=== PATIENT | female | born 1995 | race Caucasian/White ===

== ENCOUNTER 2017-06-15 20:52 | Inpatient (IN) | payer OTHER, MEDICAID ==
[~2017-06-15] VITALS: Ht 157.5 cm; Wt 67.2 kg
[~2017-06-15 20:52] MED LIST: BCP
[2017-06-15] MEDS ORDERED: OXYTOCIN 30U/ 0.9% NaCL 500ML 500 ML IV ONE (22:11)
[2017-06-15] MEDS ORDERED: D5%-LACTATED RINGERS 1,000 ML IV SCH (22:11)
[2017-06-15] MEDS ORDERED: OXYTOCIN 30U/ 0.9% NaCL 500ML 500 ML ONE (22:16)
[2017-06-15] MEDS ORDERED: NEWBORN KIT ONE (22:16)
[2017-06-15] MEDS ORDERED: LIDOCAINE 1%, 10ML ONE (22:16)
[2017-06-15] MEDS ORDERED: MISOPROSTOL 200 MCG TABLET ONE (22:16)
[2017-06-15] MEDS ORDERED: ONDANSETRON 2MG/ML, 2ML ONE (22:17)
[2017-06-15] MEDS ORDERED: FENTANYL PF 100 MCG/2ML ONE (22:17)
[2017-06-15] MEDS: LACTATED RINGERS 1,000 ML IV SCH ×2 (22:27→23:13)
[2017-06-15] MEDS ORDERED: METOCLOPRAMIDE 5 MG/ML, 2ML IVPush PRN (22:30)
[2017-06-15] MEDS ORDERED: FENTANYL PF 100 MCG/2ML IV PRN (22:30)
[2017-06-15] MEDS ORDERED: ONDANSETRON 2MG/ML, 2ML IVPush PRN (22:30)
[2017-06-15] MEDS ORDERED: FENTANYL PF 100 MCG/2ML IVPush PRN (22:30)
[2017-06-15] MEDS ORDERED: SODIUM CITRATE/CITRIC ACID 30 ML UDC PO PRN (22:30)
[2017-06-15 22:44] LABS: MEAN CORPUSCULAR HEMOGLOBIN 30.6 pg (27.0-34.8); MEAN CORPUSCULAR HGB CONC 33.3 g/dL (32.4-35.8); MEAN CORPUSCULAR VOLUME 91.7 fL (80-100); MEAN PLATELET VOLUME 9.9 fL (7.4-10.4); PLATELET COUNT 218 x10^3/uL (130-400); RED BLOOD COUNT 3.69 x10^6/uL (3.82-5.3); RED CELL DISTRIBUTION WIDTH 14.8 % (9.6-15.2)
[2017-06-15 23:03] LABS: BASOPHILS # (AUTO) 0.13 x10^3/uL (0-0.1); BASOPHILS % (AUTO) 1 % (0-1); EOSINOPHILS # (AUTO) 0.02 x10^3/uL (0-0.4); EOSINOPHILS % (AUTO) 0 % (1-7); LYMPHOCYTES # (AUTO) 2.72 x10^3/uL (1-3.4); LYMPHOCYTES % (AUTO) 18 % (22-44); MD SCAN; MONOCYTES # (AUTO) 0.52 x10^3/uL (0.2-0.8); MONOCYTES % (AUTO) 3 % (2-9); NEUTROPHILS # (AUTO) 11.96 x10^3/uL (1.8-6.8); NEUTROPHILS % (AUTO) 78 % (42-75)
[2017-06-15] MEDS ORDERED: LACTATED RINGERS 1,000 ML IV SCH (23:23)
[2017-06-15] MEDS ORDERED: FENTANYL/BUPIV./NS/PF 250 ML EPIDCONT SCH (23:23)
[2017-06-15] MEDS ORDERED: FENTANYL/BUPIV./NS/PF 250 ML EPIDCONT ONE (23:26)
[2017-06-15] MEDS ORDERED: BUPIVACAINE/PF 0.25% ONE ×2 (23:26)
[2017-06-15] MEDS ORDERED: NALOXONE 0.4 MG/ML, 1ML IVPush PRN (23:30)
[2017-06-15] MEDS ORDERED: LACTATED RINGERS 1,000 ML IVBOLUS PRN (23:30)
[2017-06-15] MEDS ORDERED: EPHEDRINE 50 MG/ML, 1ML IVPush PRN (23:30)
[2017-06-16] MEDS: OXYTOCIN 30U/ 0.9% NaCL 500ML 500 ML IV SCH ×2 (05:38→15:38)
[2017-06-16] MEDS ORDERED: DIPH,PERTUSS(ACELL),TET VAC/PF NC IM-VACC PRN (06:00)
[2017-06-16] MEDS ORDERED: MAGNESIUM HYDROXIDE 8%, 30ML UDC PO PRN (06:00)
[2017-06-16] MEDS ORDERED: MISOPROSTOL 200 MCG TABLET PR PRN (06:00)
[2017-06-16] MEDS ORDERED: CALCIUM CARBONATE 500 MG TAB.CHEW PO PRN (06:00)
[2017-06-16] MEDS ORDERED: ACETAMINOPHEN 325 MG TABLET PO PRN ×2 (06:00)
[2017-06-16] MEDS ORDERED: OXYcodone/APAP 5/325MG TABLET PO PRN ×2 (06:00)
[2017-06-16] MEDS ORDERED: RHOGAM FROM BLOOD BANK 1 NOTE EA IM/IV ONE (06:00)
[2017-06-16] MEDS ORDERED: ONDANSETRON 2MG/ML, 2ML IV PRN (06:00)
[2017-06-16 07:50] VITALS: BP 128/78
[2017-06-16] MEDS: IBUPROFEN 600 MG TABLET PO PRN ×2 (10:25→22:53)
[2017-06-16] MEDS: PRENATAL VIT/IRON/FA 1 EACH TABLET PO SCH (10:25)
[2017-06-16] MEDS: DOCUSATE 100 MG CAPSULE PO PRN ×2 (10:26→22:53)
[2017-06-16 12:00] VITALS: BP 127/78
[2017-06-16 13:16] LABS: MEAN CORPUSCULAR HEMOGLOBIN 30.5 pg (27.0-34.8); MEAN CORPUSCULAR HGB CONC 33.3 g/dL (32.4-35.8); MEAN CORPUSCULAR VOLUME 91.5 fL (80-100); MEAN PLATELET VOLUME 9.8 fL (7.4-10.4); PLATELET COUNT 185 x10^3/uL (130-400); RED BLOOD COUNT 3.67 x10^6/uL (3.82-5.3)
[2017-06-16 13:52] LABS: BASOPHILS # (AUTO) 0.03 x10^3/uL (0-0.1); BASOPHILS % (AUTO) 0 % (0-1); EOSINOPHILS # (AUTO) 0.05 x10^3/uL (0-0.4); EOSINOPHILS % (AUTO) 0 % (1-7); LYMPHOCYTES # (AUTO) 2.64 x10^3/uL (1-3.4); LYMPHOCYTES % (AUTO) 14 % (22-44); MD SCAN; MONOCYTES # (AUTO) 0.65 x10^3/uL (0.2-0.8); MONOCYTES % (AUTO) 4 % (2-9); NEUTROPHILS # (AUTO) 15.07 x10^3/uL (1.8-6.8); NEUTROPHILS % (AUTO) 82 % (42-75)
[2017-06-16 16:00] VITALS: BP 109/65
[2017-06-16 19:50] VITALS: BP 116/75
[2017-06-16] MEDS ORDERED: ONDANSETRON ODT 4 MG ONE (23:52)
[2017-06-17] VITALS: BP 107/64
[2017-06-17] MEDS ORDERED: ONDANSETRON ODT 4 MG PO PRN
[2017-06-17] MEDS ORDERED: ONDANSETRON 0.8 MG/ML ORAL SOL PO PRN
[2017-06-17] MEDS: OXYTOCIN 30U/ 0.9% NaCL 500ML 500 ML IV SCH (01:38)
[2017-06-17 07:34] VITALS: BP 109/60
[2017-06-17] MEDS: DOCUSATE 100 MG CAPSULE PO PRN (07:36)
[2017-06-17] MEDS: PRENATAL VIT/IRON/FA 1 EACH TABLET PO SCH (07:36)
== END 2017-06-17 13:20 | disposition home or self-care (01) | DRG 775 ==
LOC: LDOP 20:52 → EDIP 22:27 → LDIP 22:41 → 2NW 06-16 07:40
PROVIDERS: ADMIT Obstetrics & Gynecology Maternal & Fetal Medicine; ATTEND Obstetrics & Gynecology Maternal & Fetal Medicine
PROC: 10E0XZZ Delivery of Products of Conception, External Approach (ICD-10-PCS; principal; 2017-06-16)
PROC: 0HQ9XZZ Repair Perineum Skin, External Approach (ICD-10-PCS; 2017-06-16)
PROC: 3E0R3BZ Introduction of Anesthetic Agent into Spinal Canal, Percutaneous Approach (ICD-10-PCS; 2017-06-16)
PROC: 00HU33Z Insertion of Infusion Device into Spinal Canal, Percutaneous Approach (ICD-10-PCS; 2017-06-16)
DX: O34.219 Maternal care for unspecified type scar from previous cesarean delivery (principal); O69.81X0 Labor and delivery complicated by cord around neck, without compression, not applicable or unspecified; O77.9 Labor and delivery complicated by fetal stress, unspecified; O70.0 First degree perineal laceration during delivery; Z37.0 Single live birth; Z3A.40 40 weeks gestation of pregnancy
CPT/HCPCS: 36415; 82803; 85025; 86850; 86900; J2405; J3010; Q0162; J7120

== ENCOUNTER 2020-03-19 15:31 | Emergency (ER) | payer MEDICAID, OTHER ==
[~2020-03-19] VITALS: Ht 157.5 cm; Wt 70.0 kg
--- NOTE | 2020-03-19 15:32 | NUR ---
patient arrives with cramping and pain left sided flank pain and some pain in right. she is guarding her belly and in excrutiating pain she rates 8 of 10. on monitor, collected urine, and rails up
[2020-03-19] MEDS ORDERED: KETOROLAC 30 MG/1 ML IVPush ONE (16:00)
[2020-03-19] MEDS ORDERED: SODIUM CHLORIDE 0.9% 1,000ML IV ONE (16:00)
[2020-03-19] MEDS ORDERED: SODIUM CHLORIDE FLUSH 10ML SYR IVF ONE (16:00)
[2020-03-19] MEDS ORDERED: KETOROLAC 30 MG/1 ML ONE (16:00)
[2020-03-19] MEDS ORDERED: ONDANSETRON 2MG/ML, 2ML IVPush ONE (16:00)
[2020-03-19] MEDS ORDERED: ONDANSETRON 2MG/ML, 2ML ONE (16:00)
[2020-03-19 16:17] LABS: MICROSCOPIC NOT IND
[2020-03-19 16:18] LABS: BASOPHILS % (AUTO) 1 % (0-1); EOSINOPHILS % (AUTO) 1 % (1-7); LYMPHOCYTES % (AUTO) 27 % (22-44); MEAN CORPUSCULAR HEMOGLOBIN 31.2 pg (27.0-34.8); MEAN PLATELET VOLUME 9.5 fL (7.4-10.4); MONOCYTES % (AUTO) 6 % (2-9); NEUTROPHILS % (AUTO) 65 % (42-75); PLATELET COUNT 252 x10^3/uL (130-400); RED BLOOD COUNT 4.48 x10^6/uL (3.82-5.3); RED CELL DISTRIBUTION WIDTH 12.5 % (9.6-15.2)
[2020-03-19 16:25] LABS: ALBUMIN 3.8 g/dL (3.4-5.0); ANION GAP 8 mmol/L (5-15); CALCIUM 9.4 mg/dL (8.5-10.1); CHLORIDE 110 mmol/L (98-107); CREATININE 0.94 mg/dL (0.55-1.02); MD NO
--- NOTE | 2020-03-19 16:49 | NUR ---
BREAK RN: PT IN CT.
--- NOTE | 2020-03-19 17:00 | NUR ---
BREAK RN: PT AMBULATED TO THE BR W/ A STEADY GAIT. RETURNED TO ROOM W/O INCIDENT. VSS, RUTHY. AWAITING CT RESULTS.
[2020-03-19 17:19] VITALS: BP 130/73
== END 2020-03-19 17:31 | disposition home or self-care (01) ==
LOC: ED 17:10
DX: M54.6 Pain in thoracic spine (principal); R10.9 Unspecified abdominal pain; R11.0 Nausea; R19.7 Diarrhea, unspecified; F17.210 Nicotine dependence, cigarettes, uncomplicated
CPT/HCPCS: 36415; 74176; 80048; 81003; 82040; 83690; 84703; 85025; 96361; 96374; 96375; 99284; 99406; J1885; J2405; J7030

== ENCOUNTER → 2020-07-25 | Outpatient (CLI) | payer OTHER | END | disposition home or self-care (01) | LOC: RAD 13:07 | PROVIDERS: ATTEND Family Medicine | DX: N20.0 Calculus of kidney (principal); R31.29 Other microscopic hematuria; R91.1 Solitary pulmonary nodule | CPT/HCPCS: 74176 ==